=== PATIENT | female | born 1960 | race Caucasian/White ===

== ENCOUNTER 2022-08-27 14:28 | Outpatient (CLI) | payer OTHER ==
[2022-09-03] MEDS ORDERED: SYNTHROID50 MCG PO (12:59)
[2022-09-03] MEDS ORDERED: CREST PO (13:00)
== END 2022-08-27 14:43 | disposition home or self-care (01) ==
LOC: SONOGRAMA 14:28
PROVIDERS: ATTEND Surgery
DX: C50.412 Malignant neoplasm of upper-outer quadrant of left female breast (principal)

== ENCOUNTER 2022-09-06 06:58 | Day surgery (SDC) | payer OTHER ==
[~2022-09-06] VITALS: Ht 162.6 cm; Wt 83.0 kg
[~2022-09-06 06:58] MED LIST: CREST PO; SYNTHROID50 MCG PO
== END 2022-09-06 19:00 | disposition home or self-care (01) ==
LOC: CIR.AMB 06:58
PROVIDERS: ATTEND Surgery
DX: D05.12 Intraductal carcinoma in situ of left breast (principal); R59.0 Localized enlarged lymph nodes; D05.82 Other specified type of carcinoma in situ of left breast; E78.5 Hyperlipidemia, unspecified; Z86.16 Personal history of COVID-19; E03.9 Hypothyroidism, unspecified
CPT/HCPCS: 19301; 19281; 38525; 78195; L8699; A9541